=== PATIENT | female | born 2000 | race African-American/Black ===

== ENCOUNTER 2021-02-08 03:15 | Emergency (ER) | payer OTHER ==
[~2021-02-08] VITALS: Ht 172.7 cm; Wt 81.6 kg
--- NOTE | 2021-02-08 03:45 | NUR ---
PT BIBS C/O HAVING POSSIBLE STREP THROAT. PATIENT C/O HAVING A SORE THROAT FOR 5 DAYS. PATIENT IS ALSO COMPLANING OF SWOLLEN LYMPH NODES. PATIENT DOES NOT HAVE A FEVER AND IS AMBULATORY WITH NON LABORED BREATHING.
[2021-02-08] MEDS ORDERED: DEXAMETHASONE SOD PHOSPHATE 10 MG/ML VIAL ONE (04:00)
[2021-02-08] MEDS ORDERED: DEXAMETHASONE SOD PHOSPHATE 10 MG/ML VIAL IV ONE (04:00)
[2021-02-08] MEDS ORDERED: IV NS 0.9% 1,000 ML BAG IV ONE (04:00)
[2021-02-08] MEDS ORDERED: CLINDAMYCIN 900 MG in IV D5W 100 ML IV ONE (04:00)
[2021-02-08 04:05] LABS: BASOPHILS # (AUTO) 0.1 K/uL (0.0-0.2); BASOPHILS % (AUTO) 0.4 % (0.0-2.0); EOSINOPHILS % (AUTO) 1.5 % (0.0-6.0); HEMATOCRIT 44 % (33-45); HEMOGLOBIN 14.9 g/dL (11.5-14.8); LYMPHOCYTES # (AUTO) 1.5 K/uL (0.8-4.8); LYMPHOCYTES % (AUTO) 9.6 % (20.0-44.0); MEAN CORPUSCULAR HGB CONC 34 g/dl (31.0-36.0); MEAN CORPUSCULAR VOLUME 92 fL (82-100); MONOCYTES # (AUTO) 1.7 K/uL (0.1-1.30); MONOCYTES % (AUTO) 10.8 % (2.0-12.0); NEUTROPHILS # (AUTO) 12.3 K/uL (1.8-8.9); NEUTROPHILS % (AUTO) 77.7 % (43.0-81.0); PLATELET COUNT (AUTO) 280 K/uL (150-450); RED BLOOD CELL COUNT(AUTO) 4.75 MIL/uL (4.0-5.2); WHITE BLOOD COUNT (AUTO) 15.9 K/uL (4.3-11.0)
[2021-02-08] MEDS ORDERED: CLINDAMYCIN 900 MG/6 ML VIAL ONE (04:05)
[2021-02-08] MEDS ORDERED: LIDOCAINE VISCOUS 2% UD 15 ML UDC ONE (04:09)
[2021-02-08] MEDS ORDERED: ONDANSETRON HCL/PF 4 MG/2 ML VIAL ONE ×2 (04:14→05:58)
[2021-02-08] MEDS ORDERED: MORPHINE SULFATE INJ 4 MG/ML DISP.SYRIN ONE ×2 (04:14→05:52)
[2021-02-08] MEDS ORDERED: TETRACAINE/BENZOCAINE/BUTAMBEN 56 GM SPRAY TP ONE ×2 (04:18→04:30)
[2021-02-08] MEDS ORDERED: MORPHINE SULFATE INJ 2 MG/ML DISP.SYRIN IV ONE ×2 (04:30→06:30)
[2021-02-08] MEDS ORDERED: ONDANSETRON HCL/PF - ER 4 MG/2 ML VIAL IV ONE (04:30)
--- NOTE | 2021-02-08 04:30 | NUR ---
ABSCESS DRAINED BY MD. PATIENT TOLERATED WELL. ALL V/S STABLE BREATHING EVEN AND UNLABORED.
[2021-02-08 05:00] LABS: CALCIUM, SERUM 9.5 mg/dL (8.5-10.1); CREATININE 0.9 mg/dL (0.6-1.3); POTASSIUM 4.1 mmol/L (3.5-5.1)
[2021-02-08] MEDS ORDERED: MAG HYDROX/AL HYDROX/SIMETH 30 ML UDC ONE (05:36)
[2021-02-08] MEDS ORDERED: FAMOTIDINE/PF INJ 20 MG/2 ML VIAL IV ONE ×2 (05:36→06:00)
[2021-02-08] MEDS ORDERED: KETOROLAC TROMETHAMINE INJ 30 MG/ML VIAL ONE (05:48)
[2021-02-08 05:55] LABS: ALBUMIN 3.9 g/dL (3.4-5.0); BILIRUBIN,DIRECT 0.2 mg/dL (0.0-0.2); BILIRUBIN,TOTAL 1.1 mg/dL (0.2-1.0); TOTAL PROTEIN, SERUM 8.7 g/dL (6.4-8.2)
[2021-02-08] MEDS ORDERED: AMOX-430 PO (05:58)
[2021-02-08] MEDS ORDERED: MAG HYDROX/AL HYDROX/SIMETH 30 ML UDC PO ONE (06:00)
[2021-02-08] MEDS ORDERED: ONDANSETRON HCL/PF 4 MG/2 ML VIAL IV ONE (06:00)
[2021-02-08] MEDS ORDERED: KETOROLAC TROMETHAMINE INJ 30 MG/ML VIAL IV ONE (06:00)
[2021-02-08] MEDS ORDERED: LIDOCAINE VISCOUS 2% UD 15 ML UDC MM ONE (06:00)
--- NOTE | 2021-02-08 06:32 | NUR ---
Patient discharged to home in stable condition. Written and verbal after care instructions given. Patient verbalizes understanding of instruction. IV line discontinued and gentle pressure applied to site without complication. Pt ambualted without difficulty and was picked up by mother.
[2021-02-08 06:33] VITALS: BP 114/82
== END 2021-02-08 06:33 | disposition home or self-care (01) ==
LOC: ER 03:21
DX: J36 Peritonsillar abscess (principal); R10.9 Unspecified abdominal pain
CPT/HCPCS: 36415; 42700; 80048; 80076; 83690; 84702; 85025; 96365; 96375; 96376; 99284; J1100; J1885; J2270 ×2; J2405 ×3; J3490 ×3; J7030; J7060 ×2